=== PATIENT | male | born 1950 | race Caucasian/White ===

== ENCOUNTER → 2016-07-31 | Outpatient (CLI) | payer OTHER | LOC: FIMAGING 11:51 | PROVIDERS: ATTEND Internal Medicine | DX: R06.02 Shortness of breath (principal) ==

== ENCOUNTER → 2016-08-01 | Outpatient (CLI) | payer OTHER ==
[~2016-08-01] MED LIST: IOPAMIDOL (ISOVUE 370) 100 ML BTL IV ONE
== END ==
LOC: FIMAGING 10:33
PROVIDERS: ATTEND Internal Medicine
DX: J40 Bronchitis, not specified as acute or chronic (principal); R91.8 Other nonspecific abnormal finding of lung field; I77.811 Abdominal aortic ectasia
CPT/HCPCS: Q9967

== ENCOUNTER → 2017-05-26 | Outpatient (CLI) | payer OTHER, MEDICARE | LOC: BHFA 10:45 | PROVIDERS: ATTEND Internal Medicine Cardiovascular Disease | DX: R06.02 Shortness of breath (principal) ==

== ENCOUNTER → 2017-06-18 | Outpatient (CLI) | payer OTHER, MEDICARE | LOC: BHFA 11:00 | PROVIDERS: ATTEND Internal Medicine Cardiovascular Disease | DX: I25.10 Atherosclerotic heart disease of native coronary artery without angina pectoris (principal); R06.09 Other forms of dyspnea ==

== ENCOUNTER 2018-05-23 10:14 | Emergency (ER) | payer OTHER, MEDICARE ==
--- NOTE | 2018-05-23 10:48 | EDPHY ---
H & P Stated Complaint: "Im in A-Fib" palpitations starting 1am on 05/22 Time Seen by Provider: 05/23/18 10:26 - Personal History Tetanus Vaccine Date: within last 5 years - Medical/Surgical History Hx Asthma: No Hx Chronic Respiratory Disease: No Hx Diabetes: No Hx Cardiac Disease: Yes Hx Renal Disease: No Hx Cirrhosis: No Hx Alcoholism: No Hx HIV/AIDS: No Hx Splenectomy or Spleen Trauma: No Other PMH: Colon Polyps, Afib, R ear problems, basal cell ca removed over 10 years ago - Social History Smoking Status: Never smoked Constitutional: Initial Vital Signs Temperature (C) 36.7 C 05/23/18 10:18 Heart Rate 78 05/23/18 10:18 Respiratory Rate 16 05/23/18 10:18 Blood Pressure 139/89 H 05/23/18 10:18 O2 Sat (%) 97 05/23/18 10:18 O2 Delivery Mode Room Air Allergies/Adverse Reactions: amoxicillin Allergy (Verified 10/24/14 14:24) rivaroxaban [From Xarelto] Allergy (Verified 10/24/14 14:24) Home Medications: Medication Instructions Recorded Aspirin 81mg (*) 05/23/18 Atorvastatin Calcium 05/23/18 Diltiazem HCl [Diltiazem ER] 120 mg PO DAILY #30 cap.er.deg 05/23/18 Flonase Allergy Relief 05/23/18 Medical Decision Making ED Course/Re-evaluation: CHIEF COMPLAINT: "I'm in a-fib" HISTORY OF PRESENT ILLNESS: The patient is a 67 y/o male with a history of atrial fibrillation who arrives complaining he is in atrial fibrillation since early Thursday morning, almost 36 hours ago. He is not typically in atrial fibrillation. During prior episodes he was converted with digoxin and Diltazem, which he has available at home in case he develops atrial fibrillation again. He is not on an anticoagulant, but takes 162mg daily aspirin. 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 Rate has never been rapid. He knows he was in sinus rhythm Thursday night because he just downloaded a new EKG maureen to his watch and that's what it reported. He took 1 pill of Diltazem and 4 pills of digoxin yesterday when he first noticed he was in atrial fibrillation and another dose of Diltiazem this morning, but has not converted back to a sinus rhythm. He does not know the milligram dosing of these medications. He also mentions occasional shortness of breath when walking upstairs not obviously associated with an irregular rhythm. REVIEW OF SYSTEMS: A comprehensive 10 system review of systems is otherwise negative aside from elements mentioned in the history of present illness and medical decision making. PHYSICAL EXAM: HR, BP, O2 Sat, RR. Temp noted General Appearance: Alert, well hydrated, appropriate, and non-toxic appearing. Head: Atraumatic without scalp tenderness or obvious injury Eyes: Pupils equal, round, reactive to light and accommodation, EOMI, periorbital ecchymosis, no injection. Nose: Atraumatic, no rhinorrhea, clear. Throat: Mucus membranes moist. Neck: Supple, non-tender, no lymphadenopathy. Respiratory: No retractions, no distress, no wheezes, and no accessory muscle use. Lungs are clear to auscultation bilaterally. Cardiovascular: Irregularly irregular rate and rhythm, no murmurs, rubs, or gallops. Good capillary refill all extremities. Gastrointestinal: Abdomen is soft, non-tender, non-distended, no masses, no rebound, no guarding, no peritoneal signs. Musculoskeletal: Normal active ROM of all extremities, atraumatic. Neurological: Alert, appropriate, and interactive. Nonfocal. Skin: No rashes, good turgor, no nodules on palpation. PAST MEDICAL HISTORY: Atrial fibrillation since 2013; hypercholesterolemia - Lipitor PAST SURGICAL HISTORY: Noncontributory SOCIAL HISTORY: Post Adoption Coordinator: [facility] (previously Dr. Shah) DIAGNOSTICS/PROCEDURES/CRITICAL CARE TIME: The 12 lead EKG was interpreted by myself. Rate-controlled atrial fibrillation. See hard copy and/or "tracemaster" electronic copy for interpretation. The 12 lead EKG was interpreted by myself. Sinus mechanism. See hard copy and/ or "tracemaster" electronic copy for interpretation. DIFFERENTIAL DIAGNOSIS: The differential diagnosis for the patient's fever included but was not limited to pneumonia, urinary tract infection, viral syndrome, meningitis, and sepsis. MEDICAL DECISION MAKING: This is a 67 y/o male with a history of very occasional atrial fibrillation who presents with a 36-hour history of atrial fibrillation. He is in a rate- controlled a-fib upon assessment, but otherwise has a normal exam. Plan for IV, labs, EKG. 1045: Spoke with Dr. Estrada, sulfonation equipment operator. If we can control rhythm in ED, he is comfortable with discharge home with script for Diltazem and outpatient follow up with his office tomorrow. Using pill finder, it appears patient's Diltazem dose is 120mg ER. 1055: Reassessed patient and while speaking with him his rhythm converted to sinus on the monitor, confirmed on a second EKG. Troponin is negative. He will be discharged home in good condition with strict return precautions and referral to cardiology for follow up tomorrow. Discussed use of Diltazem in case of recurrent symptoms. He is comfortable with this plan. - Data Points Laboratory Results: Laboratory Results 05/23/18 10:40 05/23/18 10:40 05/23/18 05/23/18 05/23/18 10:47 10:45 10:40 WBC RBC Hgb POC Hgb 16.3 gm/dL gm/dL (13.7-17.5) Hct POC Hct 48 % % (40-51) MCV MCH MCHC RDW Plt Count MPV Neut % (Auto) Lymph % (Auto) [place] % (Auto) Eos % (Auto) Baso % (Auto) Nucleat RBC Rel Count Absolute Neuts (auto) Absolute Lymphs (auto) Absolute Monos (auto) Absolute Eos (auto) Absolute Basos (auto) Absolute Nucleated RBC Immature Gran % Immature Gran # POC Sodium 142 mEq/L mEq/L (135-145) Sodium 139 mEq/L mEq/L (135-145) POC Potassium 4.0 mEq/L mEq/L (3.3-5.0) Potassium 4.5 mEq/L mEq/L (3.5-5.2) POC Chloride 104 mEq/L mEq/L (97-110) Chloride 108 mEq/L mEq/L (97-110) Carbon Dioxide 24 mEq/l mEq/l (22-31) Anion Gap 7 mEq/L mEq/L (6-14) POC BUN 15 mg/dL mg/dL (7-23) BUN 15 mg/dL mg/dL (7-23) Creatinine 0.8 mg/dL mg/dL (0.7-1.3) POC Creatinine 0.8 mg/dL mg/dL (0.7-1.3) Estimated GFR > 60 Glucose 100 mg/dL mg/dL (70-100) POC Glucose 105 mg/dL H mg/dL (70-100) Calcium 9.3 mg/dL mg/dL (8.5-10.4) Magnesium 1.8 mg/dL mg/dL (1.6-2.3) POC Troponin I 0.00 ng/mL ng/mL (0.00-0.08) NT-Pro-B Natriuret Pep 1550 pg/mL H pg/mL (0-125) 05/23/18 10:40 WBC 7.25 10^3/uL 10^3/uL (3.80-9.50) RBC 5.07 10^6/uL 10^6/uL (4.40-6.38) Hgb 16.3 g/dL g/dL (13.7-17.5) POC Hgb Hct 46.5 % % (40.0-51.0) POC Hct MCV 91.7 fL fL (81.5-99.8) MCH 32.1 pg pg (27.9-34.1) MCHC 35.1 g/dL g/dL (32.4-36.7) RDW 12.1 % % (11.5-15.2) Plt Count 165 10^3/uL 10^3/uL (150-400) MPV 11.6 fL fL (8.7-11.7) Neut % (Auto) 68.4 % % (39.3-74.2) Lymph % (Auto) 20.3 % % (15.0-45.0) [place] % (Auto) 8.6 % % (4.5-13.0) Eos % (Auto) 1.9 % % (0.6-7.6) Baso % (Auto) 0.7 % % (0.3-1.7) Nucleat RBC Rel Count 0.0 % % (0.0-0.2) Absolute Neuts (auto) 4.96 10^3/uL 10^3/uL (1.70-6.50) Absolute Lymphs (auto) 1.47 10^3/uL 10^3/uL (1.00-3.00) Absolute Monos (auto) 0.62 10^3/uL 10^3/uL (0.30-0.80) Absolute Eos (auto) 0.14 10^3/uL 10^3/uL (0.03-0.40) Absolute Basos (auto) 0.05 10^3/uL 10^3/uL (0.02-0.10) Absolute Nucleated RBC 0.00 10^3/uL 10^3/uL (0-0.01) Immature Gran % 0.1 % % (0.0-1.1) Immature Gran # 0.01 10^3/uL 10^3/uL (0.00-0.10) POC Sodium Sodium POC Potassium Potassium POC Chloride Chloride Carbon Dioxide Anion Gap POC BUN BUN Creatinine POC Creatinine Estimated GFR Glucose POC Glucose Calcium Magnesium POC Troponin I NT-Pro-B Natriuret Pep Point of Care Test Results: Chemistry 05/23/18 05/23/18 10:47 10:45 POC Sodium 142 mEq/L mEq/L (135-145) POC Potassium 4.0 mEq/L mEq/L (3.3-5.0) POC Chloride 104 mEq/L mEq/L (97-110) POC BUN 15 mg/dL mg/dL (7-23) POC Creatinine 0.8 mg/dL mg/dL (0.7-1.3) POC Glucose 105 mg/dL H mg/dL (70-100) POC Troponin I 0.00 ng/mL ng/mL (0.00-0.08) ISTAT H&H 05/23/18 10:47 POC Hgb 16.3 gm/dL gm/dL (13.7-17.5) POC Hct 48 % % (40-51) Departure - Departure Disposition: Home, Routine, Self-Care Clinical Impression: Atrial fibrillation Qualifiers: Atrial fibrillation type: unspecified Qualified Code(s): I48.91 - Unspecified atrial fibrillation Condition: Good Instructions: A-fib (Atrial Fibrillation) (ED) Additional Instructions: Follow up with [facility] tomorrow without fail. You've been given a script for 120mg capsules of Diltazem in case your atrial fibrillation returns. You can take one of these per day while symptomatic. Do not take another dose today even if you go back into atrial fibrillation because you already took a dose this morning. If a-fib returns, okay to stay home and wait to see the sulfonation equipment operator tomorrow unless your heart rate exceeds 110, in that case, return to the ED. Also return to the ED for any other worsening of condition including chest pain, shortness of breath, or other concerns. Referrals: Coy Gimenez MD [Primary Care Provider] - As per Instructions Trae Estrada MD [Medical Doctor] - As per Instructions Prescriptions: Diltiazem HCl [Diltiazem ER] 120 mg PO DAILY #30 cap.er.deg Report Scribed for: Farhat Lorenzo Report Scribed by: Betty Hansen Date of Report: 05/23/18 Time of Report: 10:48
[2018-05-23 10:51] LABS: PLATELET COUNT 165 10^3/uL (150-400)
[2018-05-23 11:31] VITALS: BP 119/75
--- NOTE | 2018-05-23 14:18 | CPEKG ---
Test Reason : OPEN Blood Pressure : / mmHG Vent. Rate : 079 BPM Atrial Rate : 144 BPM P-R Int : 048 ms QRS Dur : 102 ms QT Int : 356 ms P-R-T Axes : 000 053 043 degrees QTc Int : 409 ms Atrial fibrillation Low voltage, extremity leads Anteroseptal infarct, old Confirmed by Farhat Lorenzo ([id number]) on 05/23/2018 2:17:29 PM Referred By: Confirmed By:Farhat Lorenzo
--- NOTE | 2018-05-23 14:18 | CPEKG ---
Test Reason : OPEN Blood Pressure : / mmHG Vent. Rate : 053 BPM Atrial Rate : 052 BPM P-R Int : 188 ms QRS Dur : 092 ms QT Int : 397 ms P-R-T Axes : 042 040 052 degrees QTc Int : 373 ms Sinus rhythm Probable left atrial enlargement Probable anteroseptal infarct, old Confirmed by Farhat Lorenzo ([id number]) on 05/23/2018 2:17:55 PM Referred By: Confirmed By:Farhat Lorenzo
== END 2018-05-23 11:31 | disposition home or self-care (01) ==
DX: I48.91 Unspecified atrial fibrillation (principal)
CPT/HCPCS: 82435-PO; 82565-PO; 82947-PO; 84132-PO; 84295-PO; 84484-PO; 84520-PO; 85014-PO

== ENCOUNTER → 2018-06-21 | Outpatient (CLI) | payer OTHER, MEDICARE | LOC: FCPNEURO 23:31 | PROVIDERS: ATTEND Student in an Organized Health Care Education/Training Program | DX: G47.33 Obstructive sleep apnea (adult) (pediatric) (principal) ==